=== PATIENT | female | born 1955 | race Caucasian/White ===

== ENCOUNTER → 2017-05-09 | Outpatient (CLI) | payer OTHER ==
[~2017-05-09] MED LIST: ACCUPRIL40 MG PO; ALLOPURINOL 30300 M2 PO; ASPIR 8181 MG PO; ATORVASTATIN CA40 MG PO; BACTRIM DS TAB1 EACH PO; CLARITIN10 MG PO; CLONAZEPAM 0.50.5 M1 PO; CLOTRIMAZOLE10 MG PO; COLACE CLEAR50 MG PO; CORTISPORIN OIN15 GM; DIFLUCAN200 MG PO; FARXIGA5 MG PO; HYDROCHLOROTHIA50 MG PO; HYDROCODONE-APA1 TA1 PO; INVOKANA300 MG PO; JANUVIA100 MG PO; LEVEMIR SQ; LEVOTHYROXINE 0.1 MG PO; LOPERAMIDE 2 MG2 M1 PO; MIRALAX17 GM PO; NOVOLOG100 UNIT/1; NYAMYC15 GM; PROZAC20 MG PO; TOPROL XL25 MG PO
--- NOTE | 2017-05-22 00:03 | ONC ---
[place] [address] RADIATION ONCOLOGY NOTE Name: JAGDISH,REED Gates Room: [facility]#: [id number] Admission: 05/09/17 Attend Phys: Monty Stewart MD Discharge: Date of : 51 Report #: [id number] THIS REPORT FOR: //name// CC: Monty Sherman MD DATE OF SERVICE: 05/09/2017 RADIATION ONCOLOGY FOLLOWUP NOTE: REFERRING PHYSICIANS: 1. Martin Correa M.D. 2. Brunilda Davis M.D. 3. Salima Olsen M.D. 4. Jhonny Sherman M.D. [facility] phone is [phone]. PRIMARY SITE AND HISTOPATHOLOGY: The patient had a tongue resection, Mandibulectomy, with reconstruction and bilateral neck dissection on 06/08/2015 for a [id number] tongue cancer. She received chemotherapy and radiation therapy after surgery. The radiation therapy was completed on 10/05/2015. 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 She had radiation therapy for the lung lesion which was completed on 04/30/2016. INTERVAL NOTE: The patient uses her gastric tube for nutritional support. She takes 3-6 cans of supplements per day. She has been gaining weight. She had a cough and was prescribed amoxicillin by another physician. She also sometimes has some slight vertigo which is a chronic condition that she has had for many months. MEDICATIONS: Include Tylenol as needed, allopurinol, on amoxicillin suspension via her gastric tube, aspirin 81 mg, atorvastatin, clonazepam, and Nexium. She is taking fluconazole in the past, Prozac, hydrochlorothiazide, insulin, Januvia 112 mcg of levothyroxine per day, metoprolol, Nystatin cream as needed. GlycoLax as needed. ALLERGIES: She has no known drug allergies. SOCIAL HISTORY: Cigarettes, she does not smoke. REVIEW OF SYSTEMS: [place] [address] RADIATION ONCOLOGY NOTE Name: REED DUBON Room: [facility]#: [id number] Admission: 05/09/17 Attend Phys: Monty Stewart MD Discharge: Date of : 51 Report #: [id number] RESPIRATORY: Breathing was stable. She was not short of breath. MUSCULOSKELETAL: She has good range of motion of her upper extremities. PHYSICAL EXAMINATION: VITAL SIGNS: The patient weighed 170.8 pounds on 05/09/2017 and 166.2 pounds on 12/04/2016. On 05/09/2017 blood pressure was 118/69, pulse 69, and respirations 24. LYMPH NODES: She had no palpable cervical or supraclavicular lymphadenopathy. HEAD, EYES, EARS, NOSE AND THROAT EXAM: Mouth had a resected tongue and there were no suspicious visible lesions in the mouth. There were no suspicious palpable lesions in the mouth. She has xerostomia. The Teeth appear in good condition. She had cerumen obscuring the right external auditory canal. the left tympanic membrane was intact. HEART: Had a regular rate and rhythm without murmur. LUNGS: were clear to auscultation. ABDOMEN: Gastric tube was intact. Spleen was not palpable. Liver was at the costal margin. LABORATORY DATA: Her TSH on 05/02/2017 was 1.25 on her present dose of 112 mcg of levothyroxine per day and her BUN was 16, creatinine 0.56, sodium 133, potassium 4. RADIOLOGIC DATA: She had a neck and chest CT scan on 03/04/2017 which revealed a decrease in the size of the cavitary process in the right lower lobe was a little more solid in appearance. Findings were indeterminate and a correlation with a PET CT was suggested, there was no thoracic lymphadenopathy. There was calcified coronary artery disease and there was a stable low density area in the liver that is unchanged. ASSESSMENT AND PLAN: 1. History of head and neck cancer- There is no evidence of head and neck cancer at this time. The patient was scheduled for a neck and chest CT as well as lab work on 07/01/2017 with her medical oncologist, Dr. Davis. She is scheduled to see Dr. Davis on 07/03/2017. I will go ahead and see if she can change her neck and chest CT to a PET CT at that time as suggested by the radiology report. I also will and refer the patient to her ear, nose and throat physician, Dr. Correa since she may have some impacted cerumen in the right external auditory canal and chronic symptoms of vertigo. I will order a basic metabolic panel and TSH in 09/2017 and I asked the patient to schedule a follow up appointment with me afterwards. 2. Lung cancer- The patient appears to still have a good response to the treatment of lung cancer. The patient is scheduled for a neck and chest CT as well as lab work by her medical oncologist, Dr. Davis on 07/01/2017 [place] [address] RADIATION ONCOLOGY NOTE Name: REED DUBON Room: [facility]#: [id number] Admission: 05/09/17 Attend Phys: Monty Stewart MD Discharge: Date of : 51 Report #: [id number] has a followup appointment with Dr. Davis on 07/03/2018. I will have my staff to check with Dr. Davis's nurse and see if they can change the CT scan to a PET/CT at that time. 3. Hypothyroidism- The patient's TSH is within normal limits on her present dose of 112 mcg of levothyroxine per day. So she was given a prescription for 112 mcg levothyroxine and given a requisition for a TSH in 09/2017 and she was asked to schedule a follow up appointment with me afterwards. 4. Dental care- The patient was given a prescription for PreviDent for dental care. 5. Hypertension- The patient is normotensive on her present dose of hydrochlorothiazide. Thank you for allowing me to participate in the care of this patient. <ELECTRONICALLY SIGNED> By: Monty Stewart MD 05/22/17 0003 [id number] Stewart MD /nt
== END ==
LOC: M.RTH 01:46
DX: Z08 Encounter for follow-up examination after completed treatment for malignant neoplasm (principal); C34.90 Malignant neoplasm of unspecified part of unspecified bronchus or lung; E03.9 Hypothyroidism, unspecified; I10 Essential (primary) hypertension; Z85.89 Personal history of malignant neoplasm of other organs and systems

== ENCOUNTER → 2017-10-08 | Outpatient (CLI) | payer OTHER ==
--- NOTE | 2017-10-22 23:51 | ONC ---
[place] [address] RADIATION ONCOLOGY NOTE Name: JAGDISHREED S Room: [facility]#: [id number] Admission: 10/08/17 Attend Phys: Monty Stewart MD Discharge: Date of : 51 Report #: [id number] THIS REPORT FOR: //name// CC: Monty Sherman MD DATE OF SERVICE: 10/08/2017 RADIATION ONCOLOGY FOLLOWUP NOTE REFERRING PHYSICIANS: Martin Correa MD; Salima Olsen MD; Brunilda Davis MD and Jhonny Sherman MD [facility] phone is [phone]. PRIMARY SITE AND HISTOPATHOLOGY: The patient had a tongue resection mandibulectomy with reconstruction and bilateral neck dissection on 06/08/2015 for a [id number] tongue cancer. She received chemotherapy and radiation therapy after surgery. The radiation therapy was completed on 10/05/2015. She then developed a lung lesion in the lower lobe of the right lung. The pathology revealed a well-differentiated squamous cell carcinoma. She had radiation therapy for the lung lesion, which was completed on 04/30/2016. INTERVAL NOTE: She relies on her gastric tube for nutritional support. She is taking about 4.5 to 6 cans of Isosource per day. MEDICATIONS: She is on 112 mcg of levothyroxine per day as well as loperamide as needed, metoprolol, NovoLog, albuterol inhaler, allopurinol, atorvastatin, Claritin as needed, clotrimazole, fluconazole, hydrochlorothiazide, 7.5 mg hydrocodone, insulin and Januvia. SOCIAL HISTORY: Cigarettes, she does not smoke. REVIEW OF SYSTEMS: RESPIRATORY: Breathing was stable. She was not short of breath. MUSCULOSKELETAL: She has good range of motion of her upper extremities. PHYSICAL EXAMINATION: VITAL SIGNS: On 10/08/2017, weight was 153.6 pounds. On 05/09/2017, she was 170.8 pounds. On 10/08/2017, blood pressure 106/67, pulse 64, respirations 24, oxygen saturation was 93%. LYMPH NODES: She had no palpable cervical or supraclavicular lymphadenopathy. HEAD, EYES, EARS, NOSE AND THROAT: Mouth had a resected tongue. There were no suspicious [place] [address] RADIATION ONCOLOGY NOTE Name: REED DUBON Room: [facility]#: [id number] Admission: 10/08/17 Attend Phys: Monty Stewart MD Discharge: Date of : 51 Report #: [id number] She has xerostomia. Her teeth appeared in good condition. HEART: Had a regular rate and rhythm without murmur. LUNGS: Clear to auscultation. ABDOMEN: Gastric tube was intact. Spleen was not palpable. Liver was at the costal margin. LABORATORY DATA: From 09/26/2017, TSH was lower than normal at 0.24, sodium 136, potassium 3.6, BUN 18, creatinine 0.54. RADIOLOGIC DATA: The patient had a PET/CT scan on 07/09/2017, which showed an unchanged size of the right lower lobe mass with only mild FDG uptake. The radiology recommended a followup chest CT in about 3 months. There was No evidence of local recurrence in the head and neck area. ASSESSMENT/PLAN: 1. History of head and neck cancer- There is no evidence of head and neck cancer at this time. The patient had a requisition written for a basic metabolic panel and a neck CT in about a month and the patient was asked to schedule a follow up appointment to see me afterwards. 2. Lung cancer- The patient has no clear evidence of lung cancer at this time. A basic metabolic panel and chest CT were ordered in about 1 month and the patient was asked to schedule a followup appointment to see me afterwards 3. Hypothyroidism.-The patient appears to be apparently on a slightly higher dose of levothyroxine than she needs at this point, so she was reduced from 112 mcg of levothyroxine to 100 mcg of levothyroxine, and a TSH was ordered in about a month and she was asked to schedule a follow up appointment to see me afterwards. 4. Dental care- She uses [facility]GIi[facility]ent for dental care. 5. Hypertension- The patient is normotensive on her present dose of hydrochlorothiazide and that is managed by her referring physicians. Thank you for allowing me to participate in the care of this patient. <ELECTRONICALLY SIGNED> By: Monty Stewart MD 10/22/17 2351 [id number] 1952Djasmyn Stewart MD /pawel
== END ==
LOC: M.RTH 03:57
DX: C34.90 Malignant neoplasm of unspecified part of unspecified bronchus or lung (principal); C02.9 Malignant neoplasm of tongue, unspecified; C76.0 Malignant neoplasm of head, face and neck; I10 Essential (primary) hypertension; E03.9 Hypothyroidism, unspecified

== ENCOUNTER → 2017-11-19 | Outpatient (CLI) | payer OTHER ==
--- NOTE | 2017-12-01 00:16 | ONC ---
[place] [address] RADIATION ONCOLOGY NOTE Name: REED DUBON Room: [facility]#: [id number] Admission: 11/19/17 Attend Phys: Monty Stewart MD Discharge: Date of : 51 Report #: [id number] THIS REPORT FOR: //name// CC: Monty Correa MD DATE OF SERVICE: 11/19/2017 REFERRING PHYSICIANS: Salima Olsen MD; Jhonny Sherman MD; and Brunilda Davis MD; Martin Correa MD. [facility] phone is [phone]. PRIMARY SITE AND HISTOPATHOLOGY: The patient had a tongue resection, mandibulectomy with reconstruction, and bilateral neck dissection on 06/08/2015 for a [id number] tongue cancer. She received chemotherapy and radiation therapy after surgery. The radiation therapy was completed on 10/05/2015. She then developed a lung lesion in the left lower lobe of the right lung. The pathology revealed a well-differentiated squamous cell carcinoma. She had radiation therapy for the lung lesion, which was completed on 04/30/2016. INTERVAL NOTE: She relies on her gastric tube for nutritional support. She is taking about 4.5 to 6 cans of Isosource per day and overall she feels like that she is tolerating her nutrition well. MEDICATIONS: She is on 100 mcg of levothyroxine per day as well as loperamide as needed, metoprolol, NovoLog, albuterol inhaler, allopurinol, atorvastatin, Claritin as needed, clotrimazole, fluconazole, hydrochlorothiazide, 7.5 mg hydrocodone as needed, insulin, and Januvia. SOCIAL HISTORY: Cigarettes: she does not smoke. REVIEW OF SYSTEMS: RESPIRATORY: Breathing was stable. She was not short of breath. MUSCULOSKELETAL: She had good range of motion of her extremities. PHYSICAL EXAMINATION: VITAL SIGNS: She was 153.6 pounds on 11/19/2017 and 153.6 pounds on 10/08/2017. On 11/19/2017, blood pressure was 111/65, pulse 67, respirations 20, oxygen saturation 96%. LYMPH NODES: She had no palpable cervical or supraclavicular lymphadenopathy. HEAD, EYES, EARS, NOSE AND THROAT: Mouth had a defect [place] [address] RADIATION ONCOLOGY NOTE Name: REED DUBON Room: [facility]#: [id number] Admission: 11/19/17 Attend Phys: Monty Stewart MD Discharge: Date of : 51 Report #: [id number] There were no suspicious visible lesions in the mouth. She has xerostomia. Her teeth appeared in good condition. HEART: Had a regular rate and rhythm without murmur. LUNGS: were clear to auscultation. ABDOMEN: Gastric tube was intact. Spleen was not palpable. Liver was at the costal margin. LABORATORY DATA: From 11/06/2017, sodium 137, potassium 3.3, BUN 18, creatinine 0.52. TSH was within normal limits of 0.68. RADIOLOGIC DATA: The patient had a neck CT on 11/06/2017, which revealed post-treatment changes with no evidence of recurrent tumor or metastatic disease. A Chest CT scan was not completed and she had a PET/CT scan on 07/09/2017, which showed an unchanged right lower lobe mass and they recommended a followup chest CT. ASSESSMENT AND PLAN: 1. History of head and neck cancer- There is no evidence of head and neck cancer. The patient was given a requisition for a basic metabolic panel in 11/2017 or 12/2017 and the patient was asked to schedule a follow up appointment with me afterwards. 2. History of lung cancer- The patient did not have a chest CT done yet, so a basic metabolic panel was ordered in 11/2017 or 12/[address] with contrast . She was asked to schedule a follow up appointment to see me afterwards. 3. Hypokalemia- The patient was given a prescription for potassium supplement for her hypokalemia for a certain amount of days and then hopefully with her diet, her potassium will stabilize. 4. Hypothyroidism- The patient is on 100 mcg of levothyroxine per day and her TSH within normal limits. So, she will continue 100 mcg of levothyroxine per day. 5. Dental care-She uses [facility] for dental care. Thank you for allowing me to participate in the care of this patient. <ELECTRONICALLY SIGNED> By: Monty Stewart MD 12/01/17 0016 [id number] Stewatr MD /nt
== END ==
LOC: M.RTH 04:28
DX: Z09 Encounter for follow-up examination after completed treatment for conditions other than malignant neoplasm (principal)

== ENCOUNTER → 2018-01-23 | Outpatient (CLI) | payer OTHER ==
--- NOTE | 2018-02-01 00:08 | ONC ---
[place] [address] RADIATION ONCOLOGY NOTE Name: JAGDISHREED Gates Room: [facility]#: [id number] Admission: 01/23/18 Attend Phys: Monty Stewart MD Discharge: Date of : 51 Report #: [id number] THIS REPORT FOR: //name// CC: Monty Sherman DATE OF SERVICE: 01/23/2018 REFERRING PHYSICIANS: Martin Correa MD; Brunilda Davis MD; Jhonny Sherman MD; Salima Olsen MD. [facility] phone is [phone]. PRIMARY SITE AND HISTOPATHOLOGY: The patient had a tongue resection, mandibulectomy with reconstruction, and bilateral neck dissection on 06/08/2015 for a [id number] tongue cancer. She received chemotherapy and radiation therapy after surgery. The radiation therapy was completed on 10/05/2015. She then developed a lung lesion in the left lower lobe of the right lung. The pathology revealed a well-differentiated squamous cell carcinoma. She had radiation therapy for the lung lesion, which was completed on 04/30/2016. INTERVAL NOTE: She continues to take about 4-6 cans of Isosource per day and she is trying to increase her potassium intake by taking V8 as well, which has about 20% of the recommended daily allowance of potassium in each can. MEDICATIONS: 100 mcg of levothyroxine per day, loperamide as needed, metoprolol, NovoLog, albuterol inhaler, allopurinol, atorvastatin, Claritin as needed, clotrimazole, fluconazole, hydrochlorothiazide, 7.5 mg of hydrocodone as needed, insulin, and Januvia. SOCIAL HISTORY: Cigarettes: she does not smoke. REVIEW OF SYSTEMS: RESPIRATORY: Breathing was stable. She was not short of breath. MUSCULOSKELETAL: She had good range of motion of her extremities. PHYSICAL EXAMINATION: VITAL SIGNS: The patient was 155 pounds on 01/23/2018, 153.6 pounds on 11/19/2017, and on 01/23/2018, blood pressure was 92/57, pulse 64, respirations 18. LYMPH NODES: She had no palpable cervical or supraclavicular lymphadenopathy. HEAD, EYES, EARS, NOSE AND THROAT: Mouth had a defect from a previous resection. There were no suspicious visible lesions in the mouth. She has xerostomia. Her teeth appeared in fair condition. There were no suspicious palpable lesions in the mouth. HEART: Had a regular rate and rhythm without murmur. LUNGS: were clear to auscultation. ABDOMEN: [place] [address] RADIATION ONCOLOGY NOTE Name: REED DUBON Room: [facility]#: [id number] Admission: 01/23/18 Attend Phys: Monty Stewart MD Discharge: Date of : 51 Report #: [id number] Gastric tube was intact. Spleen was not palpable. Liver was at the costal margin. EXTREMITIES: She had positive bowel sounds. LABORATORY DATA: From 01/19/2018, hemoglobin 15.5, white blood cell count 7.5. Sodium 137, potassium 3.4, which is up from 11/06/2017, when it was 3.3 and she has increased her intake of potassium rich foods. Her TSH on 11/06/2017 was 0.68 on the present dose of 100 mcg of levothyroxine, which was within normal limits. RADIOLOGIC DATA:She had a neck and chest CT on 01/19/2018 and that revealed no evidence of recurrent tumor or metastatic disease within the neck. On the chest CT, the patient had improvement in the 2.7 cm mass-like opacity in the right lower lobe, which was consistent with the treated tumor. ASSESSMENT AND PLAN: 1. History of head and neck cancer- There is no evidence of head and neck cancer at this time. The patient had lab work ordered by her medical oncologist, Dr. Davis, to be drawn on 07/17/2018, which includes a comprehensive metabolic panel and complete blood count as well as a neck CT and then followup with Dr. Davis on 07/21/2018. The patient was asked to follow up with me around 08/2018 or 09/2018. She also has an appointment with her Ear, Nose and Throat physician, Dr. Correa on 07/16/2017. 2. History of lung cancer- The patient has no evidence of lung cancer at this time. Her medical oncologist, Dr. Davis, ordered a chest CT and a neck CT in 07/17/2018 as well as lab work and the patient has an appointment with Dr. Davis on 07/21/2018. The patient was asked to follow up with me in 08/2018 or 09/2018. 3. Hypokalemia.-That is improving and she is increasing her intake of V8 juice to help increase her potassium level, which is getting close to normal. 4. Hypothyroidism- The patient is taking 100 mcg of levothyroxine per day. That will be refilled and a TSH will be added to her labs on 07/17/2018. She will be asked to follow up with me after those labs are completed.. 5. Dental care- The patient will be given a prescription for PreviDent to continue to apply to her teeth. Thank you for allowing me to participate in the care of this patient. <ELECTRONICALLY SIGNED> By: Monty Stewart MD 02/01/18 0008 1147 1922Djasmyn Stewart MD /nt
== END | disposition home or self-care (01) ==
LOC: M.RTH 02:52
DX: E87.6 Hypokalemia (principal); E03.9 Hypothyroidism, unspecified; Z85.118 Personal history of other malignant neoplasm of bronchus and lung; Z85.89 Personal history of malignant neoplasm of other organs and systems; Z79.899 Other long term (current) drug therapy; Z79.4 Long term (current) use of insulin; Z98.890 Other specified postprocedural states

== ENCOUNTER → 2018-10-23 | Outpatient (CLI) | payer MEDICARE, OTHER ==
--- NOTE | ~2018-10-23 | ONC ---
[place] [address] RADIATION ONCOLOGY NOTE Name: REED DUBON Room: [facility]#: [id number] Admission: 10/23/18 Attend Phys: Monty Stewart MD Discharge: Date of : 51 Report #: [id number] THIS REPORT FOR: //name// CC: Monty Olsen DATE OF SERVICE: 10/23/2018 REFERRING PHYSICIANS: Dr. Salima Olsen, Dr. Brunilda Davis, Dr. Jhonny Sherman. [facility] phone is [phone]. PRIMARY SITE AND HISTOPATHOLOGY: The patient had a tongue resection, mandibulectomy with reconstruction, and bilateral neck dissection on 06/08/2015 for T4 N2c M0 tongue cancer. She received chemotherapy and radiation therapy after surgery. Radiation therapy was completed on 10/05/2015. She then developed a lung lesion in the left lower lobe of the right lung. The pathology revealed a well-differentiated squamous cell carcinoma. She had radiation therapy for the lung lesion, which was completed on 04/30/2016. INTERVAL NOTE: The patient takes 4-6 cans of Isosource per day through her gastric tube. MEDICATIONS: Include 100 mcg of levothyroxine per day. Loperamide as needed. Metoprolol, NovoLog, albuterol inhaler, allopurinol, atorvastatin, Claritin as needed, clotrimazole, fluconazole, hydrochlorothiazide, 7.5 mg of hydrocodone as needed, insulin, and Januvia. SOCIAL HISTORY: Cigarettes, she does not smoke cigarettes. REVIEW OF SYSTEMS: RESPIRATORY: Breathing was stable. She was not short of breath. MUSCULOSKELETAL: She had good range of motion of her upper extremities. PHYSICAL EXAMINATION: VITAL SIGNS: The patient weighed 155.8 pounds on 10/23/2018. The patient was 155 pounds on ____. On 10/23/2018, blood pressure is 113/68, pulse 63, respirations 20, oxygen saturation 95%. LYMPH NODES: She had no palpable cervical or supraclavicular lymphadenopathy. HEAD, EYES, EARS, NOSE AND THROAT: Mouth had no suspicious visible lesions. She had a defect from her previous resection. Teeth actually appeared in good condition. She had no suspicious palpable lesions in the mouth [place] [address] RADIATION ONCOLOGY NOTE Name: REED DUBON Room: [facility]#: [id number] Admission: 10/23/18 Attend Phys: Monty Stewart MD Discharge: Date of : 51 Report #: [id number] some white discoloration around the right tonsillar pillar region that was consistent with oral candidiasis. ABDOMEN: Gastric tube was intact. Spleen was not palpable. Liver was at the costal margin. LABORATORY DATA: From 07/24/2018, hemoglobin 15.6, platelets 244,000, white blood cell count was 7.2. Sodium 136, potassium 3.8, BUN 20, creatinine 0.53, and her TSH was 0.7, which was within normal limits on her present dose of 100 mcg of levothyroxine per day. RADIOLOGIC DATA: The patient had a chest CT and neck CT in 07/24/2018. The neck CT revealed a prior glossectomy, floor of mouth resection, post-treatment changes, there is no evidence of recurrent tumor or metastatic disease within the neck. In the chest, she had a stable 2.6 cm mass-like opacity in the right lower lobe, which looks like post-radiation changes. Continued followup was recommended. ASSESSMENT AND PLAN: 1. History of head and neck cancer. There is no evidence of head and neck cancer at this time. The patient is scheduled for a neck CT scan as well as lab work on 01/25/2018 by her medical oncologist, Dr. Davis and the patient is scheduled to see Dr. Davis on 01/26/2019. The patient was asked to schedule a followup appointment to see me in about 6 months. 2. History of lung cancer. There is no evidence of lung cancer at this time. Her medical oncologist, Dr. Davis ordered lab work and a chest CT to be done on 01/25/2019 and the patient is scheduled to see Dr. Davis on 01/26/2019. The patient was asked to schedule a followup appointment to see me in about 6 months. 3. Hypothyroidism. The patient is taking 100 mcg of levothyroxine per day. The patient had her levothyroxine refilled. Her TSH is within normal limits in 07/2018 on her present 100 mcg of levothyroxine per day. She was again given a refill for 100 mcg of levothyroxine and a TSH was ordered in 01/2019. The patient was asked to schedule a followup appointment to see me in 6 months. 4. Dental care. The patient continues to use fluoride trays and he was given a refill for PreviDent fluoride. She was told to continue using that for her dental care. 5. Oral candidiasis. The patient was prescribed a 10-day course of fluconazole that she was told she can crush, then put in water and then put in through her gastric tube. Thank you for allowing me to participate in the care of this patient. By: [id number] [id number] Stewart MD /nt
== END ==
LOC: M.RTH 08-26 11:00
DX: Z08 Encounter for follow-up examination after completed treatment for malignant neoplasm (principal); E03.9 Hypothyroidism, unspecified; B37.0 Candidal stomatitis; Z85.89 Personal history of malignant neoplasm of other organs and systems; Z85.118 Personal history of other malignant neoplasm of bronchus and lung

== ENCOUNTER → 2019-04-23 | Outpatient (CLI) | payer MEDICARE, OTHER ==
--- NOTE | ~2019-04-23 | ONC ---
[place] [address] RADIATION ONCOLOGY NOTE Name: JAGDISHREEDLAURA LOREDO Room: [facility]#: [id number] Admission: 04/23/19 Attend Phys: Monty Stewart MD Discharge: Date of : 51 Report #: [id number] THIS REPORT FOR: //name// CC: Monty Olsen DATE OF SERVICE: 04/23/2019 RADIATION ONCOLOGY FOLLOWUP NOTE REFERRING PHYSICIANS: Dr. Jhonny Sherman; Brunilda Davis MD; Salima Olsen MD [facility] phone is [phone]. PRIMARY SITE AND HISTOPATHOLOGY: The patient had a tongue resection, mandibulectomy with reconstruction and bilateral neck dissection on 06/08/2015 for a [id number] tongue cancer. She received chemotherapy and radiation therapy after surgery. The radiation therapy was completed on 10/05/2015. She then developed a lung lesion in the left lower lobe of the right lung. 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 She had radiation therapy for the lung lesions, which was completed on 04/30/2016. INTERVAL NOTE: The patient takes 4-6 cans of Isosource per day through her gastric tube and she is gaining weight and overall she feels good. MEDICATIONS: Include 100 mcg of levothyroxine per day and she also takes albuterol inhaler, allopurinol, aspirin, atorvastatin, Claritin, clonazepam, empagliflozin, Farxiga, fluconazole, fluoxetine, hydrochlorothiazide, insulin, Januvia, loperamide as needed, metoprolol and pancrelipase. SOCIAL HISTORY: Cigarettes, she does not smoke cigarettes. REVIEW OF SYSTEMS: RESPIRATORY: Breathing was stable. She was not short of breath. MUSCULOSKELETAL: She had good range of motion of her upper extremities. PHYSICAL EXAMINATION: VITAL SIGNS: The patient weighed 158.2 pounds on 04/23/2019 and 155.8 pounds on 10/23/2018 and on 04/23/2019, blood pressure was 117/78, pulse 60, respirations 24 and oxygen saturation was 94%. LYMPH NODES: She had no palpable cervical or supraclavicular lymphadenopathy. HEAD, EYES, EARS, NOSE AND THROAT: Mouth had no suspicious visible lesions. She has a defect from her previous resection. Teeth appeared in good condition. She has no suspicious palpable masses of the mouth. She did not have any suspicious palpable masses [place] [address] RADIATION ONCOLOGY NOTE Name: REED DUBON Room: [facility]#: [id number] Admission: 04/23/19 Attend Phys: Monty Stewart MD Discharge: Date of : 51 Report #: [id number] ABDOMEN: Gastric tube was intact. Spleen was not palpable. Liver was at the costal margin. HEART: Had a regular rate and rhythm without murmur. LUNGS: Clear to auscultation. LABORATORY DATA: From 01/25/2019, hemoglobin was 14.3, platelets were 365,000 and white blood cells were 9.4. Sodium was 137, potassium 3.8, BUN 19, creatinine 0.51. TSH was 3.83, which was within normal limits with her taking 100 mcg of levothyroxine per day. RADIOLOGIC DATA: She had a neck and chest CT on 01/25/2019. The neck CT just shows post-treatment changes and the chest CT showed stable area of nodular consolidation within the right lower lobe, patchy areas of consolidation and nodularities within both lower lobes, greater on the left, which could have been an upper respiratory infection. At that time, they recommended a followup chest CT in 2-3 months. ASSESSMENT AND PLAN: 1. History of head and neck cancer. There is no evidence of head and neck cancer at this time. Lab work will be ordered in the next 2-4 weeks and the patient will be asked to follow up with me afterwards. 2. History of lung cancer. There is no evidence of lung cancer at this time. The patient may have had an upper respiratory infection back in 01/2019. There is no evidence of any upper respiratory infection clinically at this time. So, lab work and a chest CT will be ordered in the next 2-4 weeks and the patient was asked to schedule a followup appointment to see me afterwards. 3. Hypothyroidism. The patient was given a refill for 100 mcg of levothyroxine since her TSH was within normal limits on her present dose of 100 mcg of levothyroxine per day. TSH was ordered in 2-4 weeks. The patient was asked to schedule a followup appointment to see me afterwards. 4. Dental care. The patient was given refill for PreviDent gel to use. Thank you for allowing me to participate in the care of this patient. By: [id number] [id number] Stewart MD /pawel
== END ==
LOC: M.RTH 05:16
DX: Z08 Encounter for follow-up examination after completed treatment for malignant neoplasm (principal); E03.9 Hypothyroidism, unspecified; Z85.118 Personal history of other malignant neoplasm of bronchus and lung

== ENCOUNTER → 2019-12-10 | Outpatient (CLI) | payer MEDICARE, OTHER ==
--- NOTE | 2019-12-26 02:21 | ONC ---
[place] [address] RADIATION ONCOLOGY NOTE Name: REED DUBON Room: [facility]#: [id number] Admission: 12/10/19 Attend Phys: Monty Stewart MD Discharge: Date of : 51 Report #: [id number] THIS REPORT FOR: //name// CC: Monty Davis MD DATE OF SERVICE: 12/10/2019 RADIATION ONCOLOGY FOLLOWUP NOTE REFERRING PHYSICIANS: Jhonny Sherman MD; Brunilda Davis MD; and Salima Olsen MD. [facility] phone is [phone]. PRIMARY SITE AND HISTOPATHOLOGY: The patient had a tongue resection, mandibulectomy with reconstruction, and bilateral neck dissection on 06/08/2015 for a T4 N2c M0 tongue cancer. She received chemotherapy and radiation therapy after surgery. Radiation therapy was completed on 10/05/2015. She then developed a lung lesion in the left lower lobe of the right lung. The pathology revealed a well-differentiated squamous cell carcinoma. She had radiation therapy for the lung lesion, which was completed on 04/30/2016. She also underwent a resection of a breast cancer from the left breast in 2000 at [facility]. She had a simple mastectomy with a saline implant. INTERVAL NOTE: Overall, she feels like she is doing fine. She takes about 5 cans of Isosource through her gastric tube per day. She recently had a gastric tube exchange at the [facility] and that was on 11/10/2019. She did indicate that she has some more firmness around the implant area in the left reconstructed chest wall. MEDICATIONS: Include 100 mcg of levothyroxine per day. She also uses an albuterol inhaler. She takes allopurinol, aspirin, atorvastatin, Claritin, clonazepam as needed, empagliflozin, Farxiga, fluconazole, fluoxetine, hydrochlorothiazide, insulin, Januvia, loperamide as needed, metoprolol, and pancrelipase. SOCIAL HISTORY: Cigarettes: - She does not smoke cigarettes. REVIEW OF SYSTEMS: RESPIRATORY: Breathing was stable. She was not short of breath. MUSCULOSKELETAL: She had good range of motion of her upper extremities. PHYSICAL EXAMINATION: with my nurse, Anastasiya [place], [place] [address] RADIATION ONCOLOGY NOTE Name: JAGDISHREEDLAURA LOREDO Room: [facility]#: [id number] Admission: 12/10/19 Attend Phys: Monty Stewart MD Discharge: Date of : 51 Report #: [id number] VITAL SIGNS: The patient weighed 165 pounds on 12/10/2019. She was 158 pounds on 04/23/2020. On 12/10/2019, blood pressure was 123/64, pulse 63, respirations 22, oxygen saturation was 97%, temperature 98 degrees Fahrenheit. LYMPH NODES: The patient had no palpable cervical or supraclavicular lymphadenopathy. HEAD, EYES, EARS, NOSE, AND THROAT: Mouth had no suspicious visible lesions or suspicious palpable lesions. Her teeth appeared in good condition. It looked like she had a small abrasion along the right buccal mucosa, which appeared to be healing reasonably well. ABDOMEN: Gastric tube was intact. Spleen was not palpable. HEART: Had a regular rate and rhythm without murmur. LUNGS: were clear to auscultation. BREASTS: Left breast: She does have firmness around the implant. There were no palpable left axillary lymph nodes. There were no suspicious right breast masses or right axillary lymph nodes. LABORATORY DATA: From 11/08/2019, hemoglobin was 15.9; platelets 215,000; white blood cell count was 7.7. Sodium 138, potassium 4.4, BUN 20, creatinine 0.61. AST 23, ALT 22, TSH 0.79. RADIOLOGIC DATA: She had a CT scan of her chest, abdomen and pelvis on 10/08/2019, which showed stable right lower lobe nodules. There were no new enlarging pulmonary nodules. There was no thoracic lymphadenopathy. There was no abdominopelvic metastatic disease. She had cholelithiasis. She also had a neck CT on 10/08/2019, which showed an unchanged exam since 01/25/2019, with post-treatment changes. There was no discrete measurable recurrent mass. There was no cervical lymphadenopathy. LABORATORY DATA: The patient's TSH was 0.79, which was within normal limits with her taking 100 mcg of levothyroxine per day. ASSESSMENT AND PLAN: 1. History of head and neck cancer- There is no evidence of head and neck cancer at this time. The patient was asked to schedule a followup appointment to see me in about 1-4 weeks. 2. History of lung cancer- There is no evidence of lung cancer. The patient was asked to follow up with me in about 1-4 weeks. 3. Hypothyroidism-The patient was given a refill for 100 mcg of levothyroxine since her TSH was within normal limits on her present dose of 100 mcg of levothyroxine per day and the patient was asked to [place] [address] RADIATION ONCOLOGY NOTE Name: REED DUBON Room: [facility]#: [id number] Admission: 12/10/19 Attend Phys: Monty Stewart MD Discharge: Date of : 51 Report #: [id number] 1-4 weeks. 4. Dental care-The patient was given a refill for PreviDent Gel to use for dental care. 5. History of left breast cancer. The patient had some firmness around her implant, so she was set up for a breast MRI and she was asked to schedule a follow up appointment with me afterwards. The firmness may be due to a rupture of her saline implant with fibrosis around the implant since her chest CT from 10/08/2019 revealed a collapsed left breast implant. Thank you for allowing me to participate in the care of this patient. <ELECTRONICALLY SIGNED> By: Monty Stewart MD 12/26/19 0221 [id number] [id number] Stewart MD /nt
== END ==
LOC: M.RTH 11:15
PROVIDERS: ATTEND Radiology Radiation Oncology
DX: E03.9 Hypothyroidism, unspecified (principal); Z85.118 Personal history of other malignant neoplasm of bronchus and lung; Z85.43 Personal history of malignant neoplasm of ovary; Z85.89 Personal history of malignant neoplasm of other organs and systems; Z79.899 Other long term (current) drug therapy

== ENCOUNTER → 2019-12-13 | Outpatient (CLI) | payer MEDICARE, OTHER | LOC: M.MRI 16:04 | PROVIDERS: ATTEND Radiology Radiation Oncology | DX: C50.912 Malignant neoplasm of unspecified site of left female breast (principal); N63.22 Unspecified lump in the left breast, upper inner quadrant ==

== ENCOUNTER → 2019-12-17 | Outpatient (CLI) | payer MEDICARE, OTHER ==
--- NOTE | ~2019-12-17 | ONC ---
[address] [address] RADIATION ONCOLOGY NOTE Name: REED DUBON Room: [facility].#: [id number] Admission: 12/17/19 Attend Phys: Monty Stewart MD Discharge: Date of : 51 Report #: [id number] THIS REPORT FOR: //name// CC: Monty Olsen RADIATION ONCOLOGY FOLLOWUP NOTE The patient was seen on 12/17/2019. REFERRING PHYSICIANS: Includes: 1. Jhonny Sherman MD 2. Brunilda Davis MD 3. Salima Olsen MD. 4. Martin Correa MD. [facility] phone [phone]. PRIMARY SITE AND HISTOPATHOLOGY: The patient had a tongue resection, mandibulectomy with reconstruction and bilateral neck dissection on 06/08/2015 for a [id number] tongue cancer. She received chemotherapy and radiation therapy after surgery. Radiation therapy was completed on 10/05/2015. She then developed a lung lesion in the left lower lobe of the right lung. The pathology revealed a well-differentiated squamous cell cancer. She had radiation therapy for the lung lesion, which was completed on 04/30/2016. She also underwent a resection of her breast cancer that was involving the left breast in 2000 that was at [facility]. She has simple mastectomy with a saline implant and that implant was placed by Dr. Garner. INTERVAL NOTE: The patient is primarily here to check on her breast MRI results and she had some firmness around her implant. She generally gets a right breast mammogram. She has not really had any left breast or left reconstructed breast mammograms. She takes about 5 cans of Isosource through her gastric tube per day. She had a gastric tube exchange at the [facility] on 11/10/2019 and the new gastric tube seems to be working well. MEDICATIONS: Include 100 mcg of levothyroxine per day. She also takes albuterol inhaler. She also takes allopurinol, aspirin, atorvastatin, Claritin, clonazepam as needed, empagliflozin, Farxiga, fluconazole, fluoxetine, hydrochlorothiazide, insulin, Januvia, loperamide as needed, metoprolol and pancrelipase. SOCIAL HISTORY: Cigarettes: She does not smoke cigarettes. REVIEW OF SYSTEMS: RESPIRATORY: Breathing was stable. She was not short of breath. MUSCULOSKELETAL: She had good range of motion [place] [address] RADIATION ONCOLOGY NOTE Name: REED DUBON Room: [facility]#: [id number] Admission: 12/17/19 Attend Phys: Monty Stewart MD Discharge: Date of : 51 Report #: [id number] PHYSICAL EXAMINATION: VITAL SIGNS: The patient weighed 164.4 pounds on 12/17/2019. The patient weighed 165 pounds on 12/10/2019. On 12/17/2019, blood pressure is 116/66, pulse 64, respirations 22, temperature 98.1 degrees Fahrenheit, oxygen saturation 95%. LYMPH NODES: The patient had no palpable cervical or supraclavicular lymphadenopathy. HEAD, EYES, EAR AND NOSE: Mouth had no suspicious visible lesions or suspicious palpable lesions. Teeth appeared in good condition. She has some whitish film consistent with oral candidiasis. ABDOMEN: Gastric tube was intact. Spleen was not palpable. The patient was seen with my nurse,Anastasiya Syed, present. BREASTS: The right breast had no suspicious palpable masses. Left breast does still have some firmness around the implant. There were no palpable axillary lymph nodes on the right side or left side. HEART: Had a regular rate and rhythm without murmur. LUNGS: Clear to auscultation. 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 The patient had a benign 0.6 cm nodule in the 12 o'clock position of the left breast. It looks like she had no suspicious left axillary or internal mammary lymphadenopathy. They recommended a new bilateral mammogram. ASSESSMENT AND PLAN: 1. History of head and neck cancer. There is no evidence of head and neck cancer at this time. The patient was asked to schedule a followup appointment to see me in about 8 weeks. 2. History of lung cancer. There is no evidence of lung cancer. The patient had a chest CT on 10/08/2019 which did not reveal any evidence of lung cancer. The patient was asked to schedule followup appointment with me in about 8 weeks. 3. Hypothyroidism. The patient continues to take 100 mcg of levothyroxine per day. Her TSH within normal limits on that dose and she continues to take that for dental care - the patient takes PreviDent gel. 4. History of left breast cancer. There is no evidence of breast cancer at this time. Her findings are probably due to her intracapsular rupture. A bilateral mammogram was ordered in about 8 weeks and she was asked to schedule followup appointment to see me afterwards. She was also referred to the surgeon, Dr. De La Rosa to assess the left breast to help confirm that the firmness is due to fibrosis around [place] [address] RADIATION ONCOLOGY NOTE Name: JAGDISHREED FACUNDO Room: [facility]#: [id number] Admission: 12/17/19 Attend Phys: Monty Stewart MD Discharge: Date of : 51 Report #: [id number] Thank you very much for allowing me to participate in the care of this patient. By: 1419 [id number] Stewart MD /nt
== END ==
LOC: M.RTH 01:28
PROVIDERS: ATTEND Radiology Radiation Oncology
DX: Z08 Encounter for follow-up examination after completed treatment for malignant neoplasm (principal); Z85.810 Personal history of malignant neoplasm of tongue; Z85.89 Personal history of malignant neoplasm of other organs and systems

== ENCOUNTER → 2020-03-10 | Outpatient (CLI) | payer MEDICARE, OTHER ==
--- NOTE | 2020-03-12 23:16 | ONC ---
[place] [address] RADIATION ONCOLOGY NOTE Name: JAGDISHREED LOREDO Room: [facility].#: [id number] Admission: 03/10/20 Attend Phys: Monty Stewart MD Discharge: Date of : 51 Report #: [id number] THIS REPORT FOR: //name// CC: Monty De La Rosa DATE OF SERVICE: 03/10/2020 RADIATION ONCOLOGY FOLLOWUP NOTE REFERRING PHYSICIANS: Include Salima Olsen MD; Brunilda Davis MD; Jhonny Sherman MD; and Martin Correa MD and Lizzie De La Rosa DO. [facility] phone is [phone]. PRIMARY SITE AND HISTOPATHOLOGY: The patient had a tongue resection, mandibulectomy with reconstruction and bilateral neck dissection on 06/08/2015 for a T4 N2c M0 tongue cancer. She received chemotherapy and radiation therapy after surgery. Radiation therapy was completed on 10/05/2015. She then developed a lung lesion involving the lower lobe of the right lung. The pathology revealed a well-differentiated squamous cell cancer. She received radiation therapy for that lung lesion, which was completed on 04/30/2016. She also underwent a resection of her breast cancer that was involving the left breast in [address] [facility]. She had a simple mastectomy with a saline implant and that implant was placed by Dr. Garner. INTERVAL NOTE: The patient had an MRI of her breast back on 12/13/2019 because the patient felt some firmness around the implant in the left breast and that revealed a saline implant rupture. She went to see the surgeon, Dr. Lizzie De La Rosa, on 12/22/[address] De La Rosa felt that the findings in the left breast were consistent with fibrosis around the capsule, which was found to be ruptured on the MRI. Dr. De La Rosa offered the patient Plastic Surgery consultation if she wanted to replace the implant and the patient was not interested in that at this time. She takes about 5 cans of Isosource through her gastric tube per day. She had a gastric tube exchange at the [facility] on 11/10/2019. MEDICATIONS: Include 100 mcg of levothyroxine per day. She also uses an albuterol inhaler, allopurinol, aspirin, atorvastatin, Claritin, clonazepam as needed and empagliflozin, Farxiga, fluconazole, fluoxetine, hydrochlorothiazide, insulin, Januvia, loperamide as needed, metoprolol [place] [address] RADIATION ONCOLOGY NOTE Name: REED DUBON Room: [facility]#: [id number] Admission: 03/10/20 Attend Phys: Monty Stewart MD Discharge: Date of : 51 Report #: [id number] SOCIAL HISTORY: Cigarettes -- she does not smoke cigarettes. REVIEW OF SYSTEMS: RESPIRATORY: Breathing was stable. She was not short of breath. MUSCULOSKELETAL: She had good range of motion. PHYSICAL EXAMINATION: With my nurse, Anastasiya Syed, present: VITAL SIGNS: The patient weighed 167.4 pounds on 03/10/2020. She was 164.4 pounds on 12/17/2019. On 03/10/2020 blood pressure was 116/68, pulse 82, respirations 24, temperature 98.5 degrees Fahrenheit, oxygen saturation was 92%. LYMPH NODES: The patient had no palpable cervical or supraclavicular or axillary lymphadenopathy. HEAD, EYES, EARS, NOSE AND THROAT: Mouth had no suspicious visible lesions or suspicious palpable lesions. Her remaining teeth appeared in good condition. ABDOMEN: Gastric tube was intact. Spleen was not palpable. Liver was not enlarged. BREASTS: The right breast had no suspicious palpable masses. The left breast remnant has a palpable implant that measured about 12 cm x 14 cm at the 12 o'clock position of the breast. HEART: Had a regular rate and rhythm without murmur. LUNGS: were clear to auscultation. RADIOLOGIC DATA: From 02/15/2020 shows a collapsed left breast implant, partially imaged. There was a negative right mammogram. MRI also from 12/13/2019 showed intracapsular rupture of the left saline implant, a benign 0.6 cm nodule in the left breast. Mammograms were essentially unremarkable and the radiology report recommended routine annual mammography. The patient did have a chest CT on 05/06/2019 which showed stable nodular consolidation in the right lower lobe consistent with post-radiation fibrosis. She had a stable tiny pulmonary nodules, which were likely benign. LABORATORY DATA: From 11/08/2019, hemoglobin was 15.9, platelets were 215,000, white blood cells were 7.7. Sodium was 138, potassium was 4.4, BUN was 20 and creatinine was 0.61. Alkaline phosphatase was 124. TSH was 0.79, which was within normal limits with her taking 100 mcg of levothyroxine per day. ASSESSMENT AND PLAN: 1. History of head and neck cancer- There is no evidence of head and neck cancer at this time. The patient has a followup appointment with her ear, nose, throat physician, Dr. Correa on 04/12/2020. I asked the patient to follow up with me in 10/2020. 2. History of lung cancer- There is no evidence of lung cancer. The patient is scheduled for lab work and a chest CT by her medical oncologist, [place] [address] RADIATION ONCOLOGY NOTE Name: REED DUBON [id number] Admission: 03/10/20 Attend Phys: Monty Stewart MD Discharge: Date of : 51 Report #: [id number] on 04/18/2020 and is scheduled to see Dr. Davis on 04/20/2020. The patient had lab work ordered by me in 10/2020 and was asked to follow up with me afterwards. 3. Breast cancer- There is no evidence of breast cancer at this time. Lab work was ordered in 10/2020 and she was asked to schedule a followup appointment to see me afterwards. 4. Hypothyroidism- The patient was given a refill for 100 mcg of levothyroxine at an earlier appointment. Her TSH was within normal limits on that dose. TSH was added to her 04/18/2020 labs and also ordered in 10/2020 and the patient was asked to follow up with me after the 10/2020 lab work. 5. Dental care- The patient uses PreviDent gel for dental care and that was prescribed for her at an earlier appointment. Thank you for allowing me to participate in the care of this patient. <ELECTRONICALLY SIGNED> By: Monty Stewart MD 03/12/20 2316 1230 [id number] Stewart MD /nt
== END ==
LOC: M.RTH 00:47
PROVIDERS: ATTEND Radiology Radiation Oncology
DX: Z08 Encounter for follow-up examination after completed treatment for malignant neoplasm (principal); Z85.810 Personal history of malignant neoplasm of tongue; Z85.89 Personal history of malignant neoplasm of other organs and systems; Z85.118 Personal history of other malignant neoplasm of bronchus and lung; Z92.21 Personal history of antineoplastic chemotherapy; E03.9 Hypothyroidism, unspecified